=== PATIENT | female | born 1990 | race Caucasian/White ===

== ENCOUNTER 2017-12-04 13:32 | Inpatient (IN) | payer BC ==
[~2017-12-04 13:32] MED LIST: ACETAMINOPHEN 1000 MG/100 ML IVPB; BUPIVACAINE 0.25%/EPI (MDV) 50 ML VIAL INJ; CEFAZOLIN 1 GM INJ; SUCCINYLCHOLINE CHLORIDE 100 MG/5 ML SYG IV
[2017-12-04 14:45] LABS: ADD MAN DIFF? NO
[2017-12-04 14:47] LABS: WHITE BLOOD COUNT 7.5 10^3/ul (4.8-10.8)
[2017-12-04 14:47] LABS: BASOPHILS % 0.3 % (0.0-2.0); EOSINOPHILS # 0.2 10^3/ul (0.0-0.5); EOSINOPHILS % 2.4 % (0.0-7.0); HEMATOCRIT 30.9 % (37.0-47.0); HEMOGLOBIN 9.5 g/dl (12.0-16.0); LYMPHOCYTES # 2.5 10^3/ul (0.8-2.9); LYMPHOCYTES % 33.7 % (15.0-51.0); MEAN CORPUSCULAR HEMOGLOBIN 22.7 pg (29.0-33.0); MEAN CORPUSCULAR HGB CONC 30.7 g/dl (32.0-37.0); MEAN CORPUSCULAR VOLUME 73.7 fl (82.0-101.0); MEAN PLATELET VOLUME 9.5 fl (7.4-10.4); MONOCYTE # 0.5 10^3/ul (0.3-0.9); MONOCYTES % 6.4 % (0.0-11.0); NEUTROPHIL # 4.3 10^3/ul (1.6-7.5); NEUTROPHILS % 56.9 % (39.0-77.0); PLATELET COUNT 277 10^3/UL (140-415); RED BLOOD COUNT 4.19 10^6/ul (4.20-5.40); RED CELL DISTRIBUTION WIDTH 15.7 % (11.5-14.5)
[2017-12-04 14:55] LABS: HOLD TRANSMISSIONS 1
[2017-12-04 15:06] LABS: INR 0.98; PROTIME 13.1 Sec (11.9-14.9)
[2017-12-04 15:12] LABS: ADD UMIC YES; UR ASCORBIC ACID NEGATIVE (NEGATIVE); UR BILIRUBIN (Dip) NEGATIVE (NEGATIVE); UR BLOOD (Dip) 1+ mg/dL (NEGATIVE); UR CLARITY CLOUDY (CLEAR); UR COLOR AMBER (YELLOW); UR GLUCOSE (Dip) NEGATIVE (NEGATIVE); UR KETONES (Dip) NEGATIVE (NEGATIVE); UR LEUKOCYTE ESTERASE (Dip) 3+ Leu/ul (NEGATIVE); UR MUCUS MODERATE /HPF (NONE SEEN); UR NITRITE (Dip) NEGATIVE (NEGATIVE); UR RBC 4 /HPF (0-5); UR SPECIFIC GRAVITY (Dip) 1.029 (1.003-1.030); UR SQUAMOUS EPITHELIAL CELL MODERATE /HPF (FEW); UR TOTAL PROTEIN (Dip) 1+ mg/dl (NEGATIVE); UR UROBILINOGEN (Dip) NEGATIVE (NEGATIVE); UR WBC 18 /HPF (0-5)
[2017-12-04] MEDS ORDERED: GLYCOPYRROLATE 0.4 MG INJ (15:18)
[2017-12-04] MEDS ORDERED: PROPOFOL 20 ML (15:18)
[2017-12-04] MEDS ORDERED: LIDOCAINE 2% (SDV) 5 ML INJ (15:18)
[2017-12-04] MEDS ORDERED: ROCURONIUM 50 MG INJ (15:18)
[2017-12-04] MEDS ORDERED: NEOSTIGMINE 3 MG/3 ML SYRINGE (15:18)
[2017-12-04] MEDS ORDERED: MIDAZOLAM 1 MG/ML 2 ML INJ (15:19)
[2017-12-04] MEDS ORDERED: FENTAnyl 50 MCG/ML VIAL (15:19)
[2017-12-04 15:20] LABS: PARTIAL THROMBOPLASTIN TIME 35.4 Sec (25.0-35.0)
[2017-12-04] MEDS ORDERED: DEXAMETHASONE 4 MG/ML 1 ML INJ (15:21)
[2017-12-04] MEDS ORDERED: ONDANSETRON 4 MG INJ (15:22)
[2017-12-04] MEDS: BUPIVACAINE 0.25%/EPI (MDV) 50 ML VIAL INJ (17:44)
[2017-12-04] MEDS ORDERED: HYDROmorphONE (0.2 MG/ML) 10ML SYG IV (18:05)
[2017-12-04] MEDS ORDERED: ONDANSETRON 4 MG INJ IV (18:30)
[2017-12-04] MEDS ORDERED: OXYCODONE/ACETAMINOPHEN (5/325) TAB PO (18:30)
[2017-12-04] MEDS: HYDROmorphONE (0.2 MG/ML) 10ML SYG IV (18:37)
[2017-12-04] MEDS: BUTORPHANOL 2 MG INJ IM (18:52)
[2017-12-04] MEDS: DOXYCYCLINE 100 MG TAB PO ×2 (18:53→21:09)
[2017-12-04] MEDS ORDERED: FENTAnyl 50 MCG/ML VIAL IV (19:00)
[2017-12-04] MEDS ORDERED: MEPERIDINE 25 MG INJ (19:03)
[2017-12-04] MEDS: MEPERIDINE 25 MG INJ IV (19:08)
[2017-12-04] MEDS: LACTATED RINGER'S 1,000 ML IV (20:04)
[2017-12-04] MEDS: MAGNESIUM HYDROXIDE 30ML CUP PO ×2 (20:52→21:00)
[2017-12-04] MEDS: SENNA TAB PO (20:53)
[2017-12-04] MEDS: HYDROCODONE/APAP (5/325) TAB PO (20:54)
[2017-12-05] MEDS: HYDROCODONE/APAP (5/325) TAB PO ×3 (03:23→14:21)
[2017-12-05] MEDS: LACTATED RINGER'S 1,000 ML IV ×3 (04:42→22:53)
[2017-12-05] MEDS: ACETAMINOPHEN 325 MG TAB PO (06:17)
[2017-12-05] MEDS: MAGNESIUM HYDROXIDE 30ML CUP PO ×2 (08:43→20:17)
[2017-12-05] MEDS: DOXYCYCLINE 100 MG TAB PO ×2 (08:43→20:17)
[2017-12-05] MEDS: SENNA TAB PO ×2 (08:43→20:17)
[2017-12-05] MEDS: CEPASTAT LOZENGE MT (11:51)
[2017-12-05] MEDS: BISACODYL 10 MG SUPP PR (11:51)
[2017-12-05] MEDS: NA PHOSPHATE/BIPHOS 133 ML ENEMA PR (14:30)
[2017-12-05 15:52] LABS: ADD MAN DIFF? NO
[2017-12-05 15:56] LABS: WHITE BLOOD COUNT 10.3 10^3/ul (4.8-10.8)
[2017-12-05 15:56] LABS: BASOPHILS % 0.2 % (0.0-2.0); EOSINOPHILS % 0.2 % (0.0-7.0); HEMATOCRIT 28.7 % (37.0-47.0); HEMOGLOBIN 8.5 g/dl (12.0-16.0); LYMPHOCYTES # 2.6 10^3/ul (0.8-2.9); LYMPHOCYTES % 25.2 % (15.0-51.0); MEAN CORPUSCULAR HGB CONC 29.6 g/dl (32.0-37.0); MEAN CORPUSCULAR VOLUME 74.4 fl (82.0-101.0); MEAN PLATELET VOLUME 9.5 fl (7.4-10.4); MONOCYTE # 0.9 10^3/ul (0.3-0.9); MONOCYTES % 8.6 % (0.0-11.0); NEUTROPHIL # 6.8 10^3/ul (1.6-7.5); NEUTROPHILS % 65.5 % (39.0-77.0); PLATELET COUNT 275 10^3/UL (140-415); RED BLOOD COUNT 3.86 10^6/ul (4.20-5.40); RED CELL DISTRIBUTION WIDTH 15.7 % (11.5-14.5)
[2017-12-05] MEDS: HYDROmorphONE 0.5 MG/0.5 ML SYG IV ×3 (16:46→22:52)
[2017-12-06] MEDS: HYDROmorphONE 0.5 MG/0.5 ML SYG IV (01:11)
[2017-12-06] MEDS ORDERED: OXYCODONE/ACETAMINOPHEN (5/325) TAB PO (02:30)
[2017-12-06] MEDS: OXYCODONE/ACETAMINOPHEN (5/325) TAB PO ×4 (02:59→13:36)
[2017-12-06] MEDS: MAGNESIUM HYDROXIDE 30ML CUP PO (08:21)
[2017-12-06] MEDS: SENNA TAB PO (08:21)
[2017-12-06] MEDS: DOXYCYCLINE 100 MG TAB PO (08:21)
[2017-12-06] MEDS: LACTATED RINGER'S 1,000 ML IV (09:14)
== END 2017-12-06 17:55 | disposition home or self-care (01) | DRG 743 ==
LOC: SDS 13:32 → REC 18:38 → PP2 19:48
PROC: 0UB20ZZ Excision of Bilateral Ovaries, Open Approach (ICD-10-PCS; principal; 2017-12-04 15:00)
DX: D27.0 Benign neoplasm of right ovary (principal); N83.202 Unspecified ovarian cyst, left side
CPT/HCPCS: 81001; 85025; 85610; 85730; 86850; 86900; 86901; 88305